=== PATIENT | female | born 1975 | race Caucasian/White ===

== ENCOUNTER 2016-07-21 17:10 | Emergency (ER) | payer OTHER ==
[~2016-07-21] VITALS: Ht 170.2 cm; Wt 99.0 kg
[~2016-07-21 17:10] MED LIST: BETH25 PO; BUSP5 PO; CARB200 PO; CITA-48 PO; CYCL-36 PO; CYPR4TAB PO; FIBECHW PO; FISH1000 PO; IBUP-1116 PO; IBUP-238 PO; LAMO100 PO; MELA1TAB3 PO; OMEP20TA PO; ONDA4 PO; PRAV80TA PO; PROB1TAB PO; RANI75TA8 PO; SUMA6P SQ; TUMS500C PO; UNIS50CA PO; VITA250L PO; ZOVI400T15 PO; [UNRECOGNIZED DRUG - CODE] PO
[2016-07-21 17:20] VITALS: BP 97/70; PULSE 59; RESP 18; TEMP 98.6; O2SAT 97
[2016-07-21] MEDS ORDERED: UNIS25TA2 PO (18:18)
[2016-07-21] MEDS ORDERED: ZOVI400T PO (18:18)
[2016-07-21] MEDS ORDERED: GLUC4CHW CHEW (18:18)
[2016-07-21] MEDS ORDERED: IBUP400T20 PO (18:18)
[2016-07-21] MEDS ORDERED: BETH25 PO (18:18)
[2016-07-21] MEDS ORDERED: SUMA6P SQ (18:18)
[2016-07-21] MEDS ORDERED: CYCL5TAB PO (18:18)
[2016-07-21] MEDS ORDERED: CITA40TA4 PO (18:18)
[2016-07-21] MEDS ORDERED: FIBE625T10 PO (18:18)
[2016-07-21] MEDS ORDERED: ZOFR4TAB PO (18:18)
[2016-07-21] MEDS ORDERED: SACC1CAP3 PO (18:18)
[2016-07-21] MEDS ORDERED: MELA10TA PO (18:18)
[2016-07-21] MEDS ORDERED: VITA10004 PO (18:18)
[2016-07-21] MEDS ORDERED: LAMI50TA PO (18:18)
[2016-07-21] MEDS ORDERED: OMEP20TA PO (18:18)
[2016-07-21] MEDS ORDERED: PRAV80TA PO (18:18)
[2016-07-21] MEDS ORDERED: LAMI200T PO (18:18)
[2016-07-21] MEDS ORDERED: BUSP5TAB PO (18:18)
[2016-07-21] MEDS ORDERED: FISH1000 PO (18:18)
[2016-07-21] MEDS ORDERED: TEGR200T PO (18:18)
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
[2016-07-21] MEDS ORDERED: IBUP800T23 PO (18:41)
[2016-07-21] MEDS ORDERED: ROBA500T PO (18:41)
[2016-07-21] MEDS ORDERED: KETOROLAC TROMETHAMINE 60 MG/2 ML (IM) VIAL IM ONE (18:45)
[2016-07-21] MEDS ORDERED: ACETAMINOPHEN/HYDROcodone 325 MG/5 MG TAB PO ONE (18:45)
[2016-07-21] MEDS ORDERED: ORPHENADRINE INJ 60 MG/2 ML AMP IM ONE (18:45)
== END 2016-07-21 19:40 | disposition home or self-care (01) ==
LOC: PHED 17:10 → PHEFT 19:40
DX: M54.41 Lumbago with sciatica, right side (principal); M54.42 Lumbago with sciatica, left side
CPT/HCPCS: 96372; 99283; J1885; J2360

== ENCOUNTER 2016-08-21 10:20 | Emergency (ER) | payer OTHER ==
[~2016-08-21] VITALS: Ht 170.2 cm; Wt 96.0 kg
[~2016-08-21 10:20] MED LIST changes: -BUSP5 PO; +BUSP5TAB PO; -CARB200 PO; -CITA-48 PO; +CITA40TA4 PO; -CYCL-36 PO; +CYCL5TAB PO; -CYPR4TAB PO; +FIBE625T10 PO; -FIBECHW PO; +GLUC4CHW CHEW; -IBUP-1116 PO; -IBUP-238 PO; +IBUP400T20 PO; +IBUP800T23 PO; +LAMI200T PO; +LAMI50TA PO; -LAMO100 PO; +MELA10TA PO; -MELA1TAB3 PO; -ONDA4 PO; -PROB1TAB PO; -RANI75TA8 PO; +ROBA500T PO; +SACC1CAP3 PO; +TEGR200T PO; -TUMS500C PO; +UNIS25TA2 PO; -UNIS50CA PO; +VITA10004 PO; -VITA250L PO; +ZOFR4TAB PO; +ZOVI400T PO; -ZOVI400T15 PO; -[UNRECOGNIZED DRUG - CODE] PO
[2016-08-21 10:24] VITALS: BP 119/81; PULSE 68; RESP 17; TEMP 99.3; O2SAT 97
[2016-08-21 10:45] VITALS: RESP 18; O2SAT 98
[2016-08-21] MEDS ORDERED: methylPREDNISolone SOD SUCC 125 MG/2 ML VIAL IVP ONE (10:45)
[2016-08-21] MEDS ORDERED: SODIUM CHLORIDE 0.9% FLUSH 10 ML FLUSH IV FLUSH PRN (10:45)
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
[2016-08-21] MEDS: RESP: ALBUTEROL 2.5 MG/IPRATROPIUM 0.5 MG NEB (SCH) INH ×2 (10:52→10:53)
[2016-08-21] MEDS ORDERED: predniSONE 50 MG TAB PO ONE (11:30)
[2016-08-21 11:52] LABS: AUTOMATED NEUTROPHIL # 2.2 TH/MM3 (1.8-7.7); BASOPHIL # 0.1 TH/MM3 (0-0.2); BASOPHIL % 2.1 % (0.0-2.0); EOSINOPHIL % 0.4 % (0.0-4.0); HEMATOCRIT 42.1 % (35.0-46.0); HEMO FLAGS DIFF FINAL; LYMPH % 41.2 % (9.0-44.0); MEAN CELL VOLUME 90.5 FL (80.0-100.0); MEAN CORPUSCULAR HEMOGLOBIN 30.7 PG (27.0-34.0); MONO % 11.4 % (0.0-8.0); NEUT % 44.9 % (16.0-70.0); PLATELET COUNT 142 TH/MM3 (150-450); RED BLOOD COUNT 4.66 MIL/MM3 (4.00-5.30); RED CELL DISTRIBUTION WIDTH 12.1 % (11.6-17.2); WHITE BLOOD COUNT 4.9 TH/MM3 (4.0-11.0)
[2016-08-21] MEDS ORDERED: AMOXICILLIN (TRIHYDRATE) 500 MG CAP PO ONE (12:00)
[2016-08-21 12:04] LABS: CHLORIDE 105 MEQ/L (98-107); SODIUM (NA) 142 MEQ/L (136-145)
[2016-08-21 12:06] LABS: POTASSIUM 3.8 MEQ/L (3.5-5.1)
--- NOTE | 2016-08-21 12:06 | RADHPO ---
EXAM DATE/TIME: 08/21/2016 11:07 [place] COMPARISON: CHEST SINGLE AP, June 05, 2015, 14:32. INDICATIONS : Shortness of breath for one week. MEDICAL HISTORY : Hypercholesterolemia. Cardiovascular disease. Smoker. SURGICAL HISTORY : None. ENCOUNTER: Initial ACUITY: 1 week PAIN SCORE: 5/10 LOCATION: Bilateral chest FINDINGS: Single AP view of the chest. The lungs are clear. Cardiomediastinal silhouette within normal limits. No evidence of pleural effusion or pneumothorax. CONCLUSION: No acute cardiopulmonary disease identified. Frank Mills MD on August 21, 2016 at 12:04 Board Certified Radiologist. This report was verified electronically.
[2016-08-21 12:08] LABS: ANION GAP 12 MEQ/L (5-15); BICARBONATE 24.6 MEQ/L (21.0-32.0); BLOOD UREA NITROGEN 6 MG/DL (7-18)
[2016-08-21 12:11] LABS: ALT (GPT) 25 U/L (10-53); AST (GOT) 31 U/L (15-37); GLOMERULAR FILTRATION RATE 79 ML/MIN (>89)
[2016-08-21] MEDS ORDERED: OSEL75 PO (12:11)
[2016-08-21] MEDS ORDERED: AMOX500T PO (12:11)
[2016-08-21 12:13] LABS: TOTAL BILIRUBIN ADULT 0.3 MG/DL (0.2-1.0)
[2016-08-21 12:14] LABS: ALKALINE PHOSPHATASE 126 U/L (45-117)
[2016-08-21] MEDS ORDERED: OSELTAMIVIR PHOSPHATE 75 MG CAP PO ONE (12:15)
[2016-08-21 12:16] LABS: BETA HCG QUANT 1 MIU/ML (0-5)
[2016-08-21 12:32] VITALS: BP 138/68
--- NOTE | 2016-08-22 23:11 | EKG ---
Date Performed: 08/21/2016 Time Performed: 10:43:42 PTAGE: 40 years EKG: Sinus rhythm rSr'(V1) - probable normal variant Low QRS voltages in precordial leads Borderline ECG PREVIOUS TRACING : 06/05/2015 14.09 Compared to prior tracing no significant change DOCTOR: Timothy Trevino Interpretating Date/Time 08/22/2016 23:09:34
== END 2016-08-21 12:33 | disposition home or self-care (01) ==
LOC: PHED 10:20
DX: J09.X9 Influenza due to identified novel influenza A virus with other manifestations (principal); B95.0 Streptococcus, group A, as the cause of diseases classified elsewhere; J02.0 Streptococcal pharyngitis; F31.9 Bipolar disorder, unspecified; F41.8 Other specified anxiety disorders; E78.00 Pure hypercholesterolemia, unspecified; F20.9 Schizophrenia, unspecified; F17.210 Nicotine dependence, cigarettes, uncomplicated; Z79.899 Other long term (current) drug therapy
CPT/HCPCS: 71010; 80053; 84702; 85025; 87804; 87880; 93005; 94640; 94664; 99284; J7512

== ENCOUNTER 2016-09-28 10:56 | Emergency (ER) | payer OTHER ==
[~2016-09-28] VITALS: Ht 170.2 cm; Wt 95.5 kg
[~2016-09-28 10:56] MED LIST changes: +AMOX500T PO; -BETH25 PO; -IBUP800T23 PO; +OSEL75 PO; -ROBA500T PO; -ZOFR4TAB PO
[2016-09-28 11:09] VITALS: BP 104/56; PULSE 60; RESP 16; TEMP 97.8; O2SAT 97
[2016-09-28] MEDS ORDERED: BETH25 PO (11:21)
[2016-09-28] MEDS ORDERED: SODIUM CHLOR 0.9% 1000 ML INJ 1,000 ML IV ONE (11:30)
[2016-09-28 11:45] VITALS: O2SAT 100
[2016-09-28 12:11] LABS: AUTOMATED NEUTROPHIL # 3.5 TH/MM3 (1.8-7.7); BASOPHIL # 0.1 TH/MM3 (0-0.2); BASOPHIL % 1.1 % (0.0-2.0); CHLORIDE 107 MEQ/L (98-107); EOSINOPHIL # 0.1 TH/MM3 (0-0.4); EOSINOPHIL % 1.7 % (0.0-4.0); HEMATOCRIT 40.4 % (35.0-46.0); HEMO FLAGS DIFF FINAL; LYMPH % 35.7 % (9.0-44.0); LYMPHOCYTE # 2.5 TH/MM3 (1.0-4.8); MEAN CORPUSCULAR HEMOGLOBIN 31.5 PG (27.0-34.0); MONO % 10.8 % (0.0-8.0); NEUT % 50.7 % (16.0-70.0); PLATELET COUNT 234 TH/MM3 (150-450); POTASSIUM 4.3 MEQ/L (3.5-5.1); RED BLOOD COUNT 4.49 MIL/MM3 (4.00-5.30); RED CELL DISTRIBUTION WIDTH 12.5 % (11.6-17.2); SODIUM (NA) 141 MEQ/L (136-145)
[2016-09-28 12:15] LABS: ANION GAP 8 MEQ/L (5-15); BLOOD UREA NITROGEN 12 MG/DL (7-18)
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
[2016-09-28 12:18] LABS: ALT (GPT) 33 U/L (10-53); AST (GOT) 30 U/L (15-37); GLOMERULAR FILTRATION RATE 86 ML/MIN (>89)
[2016-09-28 12:20] LABS: TOTAL BILIRUBIN ADULT 0.2 MG/DL (0.2-1.0)
[2016-09-28 12:21] LABS: ALKALINE PHOSPHATASE 125 U/L (45-117)
[2016-09-28 13:10] LABS: BLOOD, URINE TRACE (NEG); GLUCOSE,URINE NEG (NEG); KETONE, URINE NEG (NEG); NITRITE,URINE NEG (NEG); PH, URINE 6.5 (5.0-8.5)
[2016-09-28 13:17] LABS: AMPHETAMINE, URINE NEG (NEG)
[2016-09-28 13:18] LABS: METHOD OF COLLECTION CLEAN CATCH; RBC, URINE 0-3 /hpf (0-3); URINE COLOR YELLOW (YELLW/STRAW)
[2016-09-28 13:18] LABS: BARBITURATES, URINE NEG (NEG); COCAINE, URINE NEG (NEG)
[2016-09-28 13:26] VITALS: BP 143/60; PULSE 48; RESP 16; O2SAT 100
--- NOTE | 2016-09-29 14:26 | EKG ---
Date Performed: 09/28/2016 Time Performed: 11:32:30 PTAGE: 40 years EKG: Sinus bradycardia rSr'(V1) - probable normal variant Low QRS voltages in precordial leads B orderline ECG PREVIOUS TRACING : 08/21/2016 10.43 Compared to previous tracing, sinus rate is slower. DOCTOR: Solomon Blanco Interpretating Date/Time 09/29/2016 14:24:59
== END 2016-09-28 13:51 | disposition home or self-care (01) ==
LOC: PHED 10:56
DX: G40.909 Epilepsy, unspecified, not intractable, without status epilepticus (principal)
CPT/HCPCS: 80053; 80156; 80307; 81001; 85025; 93005; 96360; 99284; J7030

== ENCOUNTER 2017-01-03 12:21 | Emergency (ER) | payer OTHER ==
[~2017-01-03] VITALS: Ht 167.6 cm; Wt 92.0 kg
[~2017-01-03 12:21] MED LIST changes: -AMOX500T PO; +BETH25 PO; -OSEL75 PO; -UNIS25TA2 PO
[2017-01-03 13:09] VITALS: BP 133/62; PULSE 61; RESP 20; TEMP 98.3; O2SAT 96
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
[2017-01-03] MEDS ORDERED: MUPI2OIN TOPICAL (15:35)
[2017-01-03] MEDS ORDERED: IBUP800T23 PO (15:35)
== END 2017-01-03 15:42 | disposition home or self-care (01) ==
LOC: PHED 12:21 → PHEFT 15:42
DX: B08.4 Enteroviral vesicular stomatitis with exanthem (principal); L01.00 Impetigo, unspecified; E78.00 Pure hypercholesterolemia, unspecified
CPT/HCPCS: 99283

== ENCOUNTER 2017-05-03 13:59 | Emergency (ER) | payer OTHER ==
[~2017-05-03] VITALS: Ht 170.2 cm; Wt 94.0 kg
[~2017-05-03 13:59] MED LIST changes: +IBUP1TAB5 PO; +IBUP1TAB7 PO; -IBUP400T20 PO; +MUPI2OIN TOPICAL; -OMEP20TA PO; +OMEP20TA93 PO
[2017-05-03 14:19] VITALS: BP 165/79; PULSE 57; RESP 20; TEMP 98.8
[2017-05-03] MEDS ORDERED: LAMI200T PO (15:26)
[2017-05-03] MEDS ORDERED: LAMO25 PO (15:26)
[2017-05-03] MEDS ORDERED: BETH25 PO (15:26)
[2017-05-03] MEDS ORDERED: ATOR80TA45 PO (15:26)
[2017-05-03] MEDS ORDERED: CYCL5TAB PO (15:26)
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
[2017-05-03] MEDS ORDERED: CLIN300C5 PO (16:04)
[2017-05-03] MEDS ORDERED: DICL75TA PO (16:04)
== END 2017-05-03 16:40 | disposition home or self-care (01) ==
LOC: PHEFT 13:59
DX: K02.9 Dental caries, unspecified (principal); K04.7 Periapical abscess without sinus; F17.200 Nicotine dependence, unspecified, uncomplicated; G40.909 Epilepsy, unspecified, not intractable, without status epilepticus; E78.00 Pure hypercholesterolemia, unspecified; K31.84 Gastroparesis; F20.9 Schizophrenia, unspecified; F31.9 Bipolar disorder, unspecified
CPT/HCPCS: 99284

== ENCOUNTER 2017-06-14 15:59 | Observation (INO) | payer OTHER, MEDICAID ==
[~2017-06-14] VITALS: Ht 170.2 cm; Wt 91.6 kg
[~2017-06-14 15:59] MED LIST changes: +ATOR80TA45 PO; +CLIN300C5 PO; +DICL75TA PO; -IBUP1TAB7 PO; -LAMI50TA PO; +LAMO25 PO; -PRAV80TA PO
[2017-06-14 16:12] VITALS: BP 127/78; PULSE 55; RESP 16; TEMP 98.4; O2SAT 100
[2017-06-14] MEDS ORDERED: ASPIRIN 325 MG TAB PO ONE (16:45)
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
[2017-06-14] MEDS ORDERED: LORazepam 1 MG TAB PO ONE (17:00)
--- NOTE | 2017-06-14 17:09 | RADRPT ---
EXAM DATE/TIME: 06/14/2017 16:59 [facility] COMPARISON: CHEST SINGLE AP, August 21, 2016, 11:07. INDICATIONS : Chest pain, irregular heart rate starting today MEDICAL HISTORY : None. SURGICAL HISTORY : None. ENCOUNTER: Initial ACUITY: 1 day PAIN SCORE: 10/10 LOCATION: Bilateral chest FINDINGS: There is slight linear parenchymal opacity in the lateral left lung base. This may be sub-segmental a telectasis. There is no evidence of effusion. Cardiomediastinal contours are satisfactory. CONCLUSION: Mild left base parenchymal opacity. Kamron Everett MD on June 14, 2017 at 17:07 Board Certified Radiologist. This report was verified electronically.
[2017-06-14 17:10] LABS: CHLORIDE 108 MEQ/L (98-107); SODIUM (NA) 139 MEQ/L (136-145)
[2017-06-14 17:12] LABS: CALCIUM 8.8 MG/DL (8.5-10.1)
[2017-06-14 17:13] LABS: BICARBONATE 22.4 MEQ/L (21.0-32.0); BLOOD UREA NITROGEN 9 MG/DL (7-18); GLUCOSE,RANDOM 85 MG/DL (74-106)
[2017-06-14 17:16] LABS: CREATININE 0.71 MG/DL (0.50-1.00); GLOMERULAR FILTRATION RATE 90 ML/MIN (>89)
[2017-06-14 17:21] LABS: TROPONIN I LESS THAN 0.02 NG/ML (0.02-0.05)
[2017-06-14 17:27] LABS: AUTOMATED NEUTROPHIL # 4.1 TH/MM3 (1.8-7.7); BASOPHIL # 0.2 TH/MM3 (0-0.2); BASOPHIL % 2.6 % (0.0-2.0); EOSINOPHIL # 0.1 TH/MM3 (0-0.4); EOSINOPHIL % 1.4 % (0.0-4.0); HEMATOCRIT 40.7 % (35.0-46.0); HEMOGLOBIN 14.4 GM/DL (11.6-15.3); LYMPH % 43.3 % (9.0-44.0); LYMPHOCYTE # 3.8 TH/MM3 (1.0-4.8); MEAN CELL VOLUME 92.2 FL (80.0-100.0); MEAN CORPUSCULAR HEMOGLOBIN 32.5 PG (27.0-34.0); MEAN CORPUSCULAR HGB CONC 35.2 % (32.0-36.0); MEAN PLATELET VOLUME 8.9 FL (7.0-11.0); MONO % 7.5 % (0.0-8.0); MONOCYTE # 0.7 TH/MM3 (0-0.9); NEUT % 45.2 % (16.0-70.0); PLATELET COUNT 219 TH/MM3 (150-450); RED BLOOD COUNT 4.42 MIL/MM3 (4.00-5.30); RED CELL DISTRIBUTION WIDTH 12.8 % (11.6-17.2); WHITE BLOOD COUNT 8.9 TH/MM3 (4.0-11.0)
[2017-06-14] MEDS ORDERED: AZITHROMYCIN 250 MG TAB PO ONE (18:15)
[2017-06-14 18:24] VITALS: BP 133/70; PULSE 57; RESP 16; O2SAT 97
[2017-06-14] MEDS ORDERED: MORPHINE SULFATE 4 MG/ML INJ IV PUSH PRN (18:45)
[2017-06-14] MEDS ORDERED: ONDANSETRON HCL 4 MG/2 ML VIAL IV PUSH PRN (18:45)
[2017-06-14] MEDS ORDERED: SODIUM CHLORIDE 0.9% FLUSH 10 ML FLUSH IV FLUSH PRN (18:45)
[2017-06-14 19:28] VITALS: BP 135/74; PULSE 54; RESP 16; O2SAT 98
[2017-06-14 19:52] LABS: TROPONIN I LESS THAN 0.02 NG/ML (0.02-0.05)
[2017-06-14] MEDS ORDERED: LEVOFLOXACIN 750 MG TAB PO SCH (20:00)
[2017-06-14 20:10] VITALS: BP 132/64; PULSE 46; RESP 20; TEMP 96.8; O2SAT 96
[2017-06-14] MEDS: SODIUM CHLORIDE 0.9% FLUSH 10 ML FLUSH IV FLUSH SCH (20:13)
[2017-06-14] MEDS ORDERED: MELATONIN PO SCH (21:30)
[2017-06-14] MEDS ORDERED: ATORVASTATIN 40 MG TAB PO SCH (21:30)
[2017-06-14] MEDS: lamoTRIgine 100 MG TAB PO SCH (21:52)
[2017-06-14] MEDS: busPIRone HCL 5 MG TAB PO SCH (21:52)
[2017-06-14] MEDS: carBAMazepine 200 MG TAB PO SCH (21:52)
[2017-06-14] MEDS: lamoTRIgine 25 MG TAB PO SCH (21:52)
[2017-06-14] MEDS: BETHANECHOL CHL 25 MG TAB PO SCH (21:52)
[2017-06-14 21:55] VITALS: O2SAT 97
[2017-06-14 22:13] LABS: TROPONIN I LESS THAN 0.02 NG/ML (0.02-0.05)
[2017-06-15] VITALS: BP 124/74; PULSE 52; RESP 20; TEMP 96.6; O2SAT 98
[2017-06-15 04:00] VITALS: BP 93/50; PULSE 50; RESP 20; TEMP 96.8; O2SAT 99
[2017-06-15] MEDS: BETHANECHOL CHL 25 MG TAB PO SCH (05:39)
[2017-06-15 08:00] VITALS: BP 113/69; PULSE 51; RESP 16; TEMP 97.2; O2SAT 99
--- NOTE | 2017-06-15 08:10 | EKG ---
Date Performed: 06/14/2017 Time Performed: 21:37:14 PTAGE: 41 years EKG: SINUS BRADYCARDIA INCOMPLETE RIGHT BUNDLE BRANCH BLOCK BORDERLINE ECG PREVIOUS TRACING : 06/14/2017 16.35 Since the prior tracing, there has been no significant fajardo DOCTOR: Yajaira Mena Interpretating Date/Time 06/15/2017 08:09:42
--- NOTE | 2017-06-15 08:10 | EKG ---
Date Performed: 06/14/2017 Time Performed: 16:35:28 PTAGE: 41 years EKG: SINUS BRADYCARDIA INCOMPLETE RIGHT BUNDLE BRANCH BLOCK BORDERLINE ECG PREVIOUS TRACING : 09/28/2016 11.32 Since the prior tracing, there has been no significant fajardo DOCTOR: Yajaira Mena Interpretating Date/Time 06/15/2017 08:09:34
[2017-06-15 08:20] VITALS: O2SAT 99
[2017-06-15] MEDS: lamoTRIgine 25 MG TAB PO SCH (09:00)
[2017-06-15] MEDS ORDERED: CITALOPRAM HYDROBROMIDE 40 MG TAB PO SCH (09:00)
--- NOTE | 2017-06-15 09:19 | HHI.HP ---
[facility] Primary Care Physician Emigdio Almendarez Do, MD Admission Diagnosis Chest pain Diagnoses: (1) Chest pain Chief Complaint: Chest pain Travel History International Travel<30 Days: No Contact w/Intl Traveler <30 Da: No Traveled to Known Affected Are: No History of Present Illness This is a pleasant 41-year-old female with a known medical history of seizures, bipolar disorder, hyperlipidemia, hypertension who presented to the ED with chest pain. Patient states that the chest pain started yesterday morning while at rest, occurred in the midsternal chest area and radiated to the left side, characterized as pressure in nature and lasted for hours. Patient denies ever having this type of pain before. She states that the pain worsens with activity and denies any known alleviating factors. Patient does admit to associated nausea and shortness of breath and diaphoresis, denies any vomiting. Patient rates the pain a 4 out of 10 on pain scale. At the current time patient does state that the chest pain is still present but more mild in nature rates it a pain of 2 out of 10 on pain scale. Patient does admit to current cigarette smoking, one pack per day. Denies any recent illness including fever , chills, abdominal pain, nausea, vomiting, diarrhea or dysuria. 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 PCP is Dr. Almendarez. Review of Systems Constitutional: COMPLAINS OF: Diaphoretic episodes, DENIES: Fever, Chills Eyes: DENIES: Blurred vision, Diplopia Respiratory: COMPLAINS OF: Shortness of breath, DENIES: Cough, Sputum production Cardiovascular: COMPLAINS OF: Chest pain, DENIES: Palpitations Gastrointestinal: COMPLAINS OF: Nausea, DENIES: Abdominal pain, Black stools, Bloody stools, Constipation, Diarrhea, Vomiting Musculoskeletal: DENIES: Joint pain Integumentary: DENIES: Abnormal pigmentation Hematologic/lymphatic: DENIES: Bruising Immunologic/allergic: DENIES: Eczema Neurologic: DENIES: Abnormal gait Psychiatric: COMPLAINS OF: Anxiety Except as stated in HPI: all other systems reviewed are Neg Past Family Social History Past Medical History Bipolar disorder Anxiety Depression Hyperlipidemia Gastroparesis Epilepsy Schizophrenia Past Surgical History History of breast reduction Reported Medications Reported Meds & Active Scripts Active Reported Flexeril (Cyclobenzaprine HCl) 5 Mg Tab 5 Mg PO TID Atorvastatin (Atorvastatin Calcium) 80 Mg Tab 80 Mg PO HS Lamictal (Lamotrigine) 25 Mg Tab 25 Mg PO BID Lamictal (Lamotrigine) 200 Mg Tab 200 Mg PO BID Urecholine (Bethanechol Chloride) 25 Mg Tab 25 Mg PO Q8HR Ibuprofen 400 Mg Tab 400 Mg PO Q6H PRN Glucose (Dextrose) 4 Gm Chew 4 Gm CHEW DIRECTED Melatonin Cr (Melatonin) 10 Mg Tab 1 Tab PO HS Vitamin B12 Tr (Cyanocobalamin) 1,000 Mcg Tab 5,000 Mcg PO DAILY Fiber Tabs (Calcium Polycarbophil) 625 Mg Tab 625 Mg PO DAILY PRN Probiotic (Saccharomyces Boulardii) 250 Mg Cap 250 Mg PO BID Fish Oil (Kinsman-3 Fatty Acids) 1,000 Mg Cap 3,000 Mg PO BID Zovirax (Acyclovir) 400 Mg Tab 400 Mg PO BID PRN Imitrex Inj (Sumatriptan Succinate) 6 Mg/0.5 Ml Inj 6 Mg SQ ONCE PRN May repeat dose in 1 hour if needed. Omeprazole 20 Mg Tab 20 Mg PO DAILY Citalopram (Citalopram Hydrobromide) 40 Mg Tab 40 Mg PO DAILY Buspirone (Buspirone HCl) 5 Mg Tab 5 Mg PO BID Tegretol (Carbamazepine) 200 Mg Tab 600 Mg PO BID Allergies: Coded Allergies: No Known Allergies (Verified Adverse Reaction, Unknown, 06/14/17) Active Ordered Medications Current Medications Medications (Trade) Dose Ordered Sig/Kassandra Route Start Time Stop Time Status Last Admin (NS Flush) 2 ml UNSCH PRN IV FLUSH 06/14/17 18:45 (NS Flush) 2 ml BID IV FLUSH 06/14/17 21:00 (Morphine Inj) 2 mg Q4H PRN IV PUSH 06/14/17 18:45 (Zofran Inj) 4 mg Q6H PRN IV PUSH 06/14/17 18:45 (Levaquin) 750 mg Q24H PO 06/14/17 20:00 06/14/17 20:41 (Lipitor) 80 mg HS PO 06/14/17 21:30 06/14/17 21:52 (Urecholine) 25 mg Q8HR PO 06/14/17 22:00 06/15/17 05:39 (Buspar) 5 mg BID PO 06/14/17 21:30 06/14/17 21:52 (TEGretol) 600 mg BID PO 06/14/17 21:30 06/14/17 21:52 (CeleXA) 40 mg DAILY PO 06/15/17 09:00 (LaMICtal) 25 mg BID PO 06/14/17 21:30 06/14/17 21:52 (LaMICtal) 200 mg BID PO 06/14/17 21:30 06/14/17 21:52 Ceftriaxone Sodium 1000 mg/ Sodium Chloride 100 ml @ 200 mls/hr Q24H IV 06/15/17 12:00 Azithromycin 500 mg/Sodium Chloride 250 ml @ 250 mls/hr Q24H IV 06/15/17 11:00 Family History Maternal medical history significant for hypertension, diabetes and obesity. Patient's uncle had a heart attack at the age of 30. Patient is unaware of father's history. Social History Patient admits to smoking 1 pack per day since her teens. Denies any alcohol use. Admits to marijuana use weekly. Physical Exam Vital Signs Vital Signs Date Time Temp Pulse Resp B/P (MAP) Pulse Ox O2 Delivery O2 Flow Rate FiO2 06/15/17 08:20 99 Nasal Cannula 2.00 06/15/17 08:00 97.2 51 16 113/69 (84) 99 06/15/17 04:00 96.8 50 20 93/50 (64) 99 06/15/17 00:00 96.6 52 20 124/74 (91) 98 06/14/17 21:55 97 Nasal Cannula 2.00 06/14/17 20:10 96.8 46 20 132/64 (86) 96 06/14/17 19:59 56 16 98 06/14/17 19:28 54 16 135/74 (94) 98 Room Air 06/14/17 18:24 57 16 133/70 (91) 97 Room Air 06/14/17 16:30 16 100 Room Air 06/14/17 16:12 98.4 55 16 127/78 (94) 100 Physical Exam GENERAL: Well-developed, well-nourished patient in NAD. On supplemental O2. SKIN: Warm and dry. No rash. HEAD: Normocephalic. Atraumatic. EYES: Pupils equal and round. No scleral icterus. No injection or drainage. ENT: No nasal bleeding or discharge. Mucous membranes pink and moist. NECK: Supple. Trachea midline. CARDIOVASCULAR: Regular rate and rhythm. S1, S2 noted. No murmur appreciated. No reproducible chest pain to palpation. RESPIRATORY: No accessory muscle use. Clear to auscultation. Breath sounds equal bilaterally. GASTROINTESTINAL: Abdomen soft, non-tender, nondistended. Normoactive bowel sounds x4. MUSCULOSKELETAL: No obvious deformities. Extremities without clubbing, cyanosis , or edema. NEUROLOGICAL: Awake and alert. No obvious cranial nerve deficits. Motor grossly within normal limits. 5/5 muscle strength in bilateral upper and lower extremities. Normal speech. PSYCHIATRIC: Appropriate mood and affect; insight and judgment normal. Laboratory Laboratory Tests Test 06/14/17 16:20 06/14/17 16:50 06/14/17 17:15 06/14/17 19:23 White Blood Count 8.9 Red Blood Count 4.42 Hemoglobin 14.4 Hematocrit 40.7 Mean Corpuscular Volume 92.2 Mean Corpuscular Hemoglobin 32.5 Mean Corpuscular Hemoglobin Concent 35.2 Red Cell Distribution Width 12.8 Platelet Count 219 Mean Platelet Volume 8.9 Neutrophils (%) (Auto) 45.2 Lymphocytes (%) (Auto) 43.3 Monocytes (%) (Auto) 7.5 Eosinophils (%) (Auto) 1.4 Basophils (%) (Auto) 2.6 Neutrophils # (Auto) 4.1 Lymphocytes # (Auto) 3.8 Monocytes # (Auto) 0.7 Eosinophils # (Auto) 0.1 Basophils # (Auto) 0.2 CBC Comment DIFF FINAL Differential Comment Blood Urea Nitrogen 9 Creatinine 0.71 Random Glucose 85 Calcium Level 8.8 Magnesium Level 2.0 Sodium Level 139 Potassium Level 3.9 Chloride Level 108 Carbon Dioxide Level 22.4 Anion Gap 9 Estimat Glomerular Filtration Rate 90 Troponin I LESS THAN 0.02 LESS THAN 0.02 Carbamazepine (Tegretol) Level 7.0 Total Creatine Kinase 109 Creatine Kinase MB 0.5 Test 06/14/17 21:44 Total Creatine Kinase 109 Creatine Kinase MB 0.7 Troponin I LESS THAN 0.02 Result Diagram: 06/14/17 1620 06/14/17 1650 Imaging Last Impressions Chest X-Ray 06/14/17 1643 Signed Impressions: Service Date/Time: Wednesday, June 14, 2017 16:59 - CONCLUSION: Mild left base parenchymal opacity. Kamron Everett MD Septic Shock Reassessment Septic shock perfusion: reassessment completed Caprini VTE Risk Assessment Caprini VTE Risk Assessment: No/Low Risk (score <= 1) Caprini Risk Assessment Model Point Value = 1 Point Value = 2 Point Value = 3 Point Value = 5 Age 41-60 Minor surgery BMI > 25 kg/m2 Swollen legs Varicose veins or History of unexplained or recurrent spontaneous Oral contraceptives or hormone replacement Sepsis (< 1 month) Serious lung disease, including pneumonia (< 1 month) Abnormal pulmonary function Acute myocardial infarction Congestive heart failure (< 1 month) History of inflammatory bowel disease Medical patient at bed rest Age 61-74 Arthroscopic surgery Major open surgery (> 45 min) Laparoscopic surgery (> 45 min) Malignancy Confined to bed (> 72 hours) Immobilizing plaster cast Central venous access Age >= 75 History of VTE Family history of VTE Factor V Leiden Prothrombin [id number] Lupus anticoagulant Anticardiolipin antibodies Elevated serum homocysteine Heparin-induced thrombocytopenia Other congenital or acquired thrombophilia Stroke (< 1 month) Elective arthroplasty Hip, pelvis, or leg fracture Acute spinal cord injury (< 1 month) Prophylaxis Regimen Total Risk Factor Score Risk Level Prophylaxis Regimen 0-1 Low Early ambulation 2 Moderate Order ONE of the following: *Sequential Compression Device (SCD) *Heparin 5000 units SQ BID 3-4 Higher Order ONE of the following medications: *Heparin 5000 units SQ TID *Enoxaparin/Lovenox 40 mg SQ daily (WT < 150 kg, CrCl > 30 mL/min) *Enoxaparin/Lovenox 30 mg SQ daily (WT < 150 kg, CrCl > 10-29 mL/min) *Enoxaparin/Lovenox 30 mg SQ BID (WT < 150 kg, CrCl > 30 mL/min) AND/OR *Sequential Compression Device (SCD) 5 or more Highest Order ONE of the following medications: *Heparin 5000 units SQ TID (Preferred with Epidurals) *Enoxaparin/Lovenox 40 mg SQ daily (WT < 150 kg, CrCl > 30 mL/min) *Enoxaparin/Lovenox 30 mg SQ daily (WT < 150 kg, CrCl > 10-29 mL/min) *Enoxaparin/Lovenox 30 mg SQ BID (WT < 150 kg, CrCl > 30 mL/min) AND *Sequential Compression Device (SCD) Assessment and Plan Assessment and Plan This is a pleasant 41-year-old female with a known medical history of seizures, bipolar disorder, hyperlipidemia, hypertension who presented to the ED with chest pain. Chest pain Patient has been admitted for observation and the chest pain center, serial EKGs and serial troponins have been ordered for ruling out ACS purposes. Serial troponins flat, EKG reviewed showing sinus bradycardia with right bundle branch block, no arrhythmias or ST changes noted. Chest pain has now resolved, patient will undergo a Lexiscan to further rule out any ischemia. We will continue to follow. Continue cardiac telemetry, monitor for any arrhythmias. Control pain, morphine IV available per pain scale. Suspect community-acquired pneumonia Chest x-ray reviewed showing mild left base parenchymal opacity. Patient requiring supplemental O2. Attempt to wean to keep O2 saturations greater than 92%. Continue Levaquin. Most likely discharge with p.o. antibiotics. Supportive care. Hyperlipidemia, chronic: Continue home atorvastatin. Depression: Continue home medications. Stable at this time. DVT prophylaxis: SCDs. Ambulation. Patient underwent a Lexiscan, report reviewed showing EF of 59%. Low risk category. No evidence of stress-induced ischemia. Intact wall motion. No redistribution. Patient updated about results. Most likely discharge home if oxygen saturations stable on room air. Problem Qualifiers (1) Chest pain: Qualified Codes: R07.9 - Chest pain, unspecified Margie Rodríguez Jun 15, 2017 09:19
[2017-06-15] MEDS ORDERED: REGADENOSON INJ 0.4 MG/5 ML SYR IV ONE (10:59)
[2017-06-15] MEDS ORDERED: AZITHROMYCIN INJ 500 MG in SODIUM CHLOR 0.9% 250 ML INJ 250 ML IV SCH (11:00)
[2017-06-15] MEDS: carBAMazepine 200 MG TAB PO SCH (11:55)
[2017-06-15] MEDS: busPIRone HCL 5 MG TAB PO SCH (11:55)
[2017-06-15] MEDS: SODIUM CHLORIDE 0.9% FLUSH 10 ML FLUSH IV FLUSH SCH (11:55)
[2017-06-15] MEDS: lamoTRIgine 100 MG TAB PO SCH (11:56)
--- NOTE | 2017-06-15 11:57 | RADRPT ---
EXAM DATE/TIME: 06/15/2017 10:06 [facility] COMPARISON: No previous studies available for comparison. INDICATIONS : Left chest pain. Angina. DOSE: 25.8 mCi Tc99m Myoview at stress. 8.6 mCi Tc99m Myoview at rest. 0.4 mg Lexiscan STRESS SYMPTOMS: Shortness of breath, nausea, vomit. EJECTION FRACTION: 59% MEDICAL HISTORY : Gastroparesis. SURGICAL HISTORY : Tubal ligation. section. ENCOUNTER: Initial ACUITY: 1 day PAIN SCALE: 4/10 LOCATION: Left chest TECHNIQUE: The patient underwent pharmacologic stress with infusion of prescribed dose. Continuous ECG tracing was monitored during stress. Gated SPECT imaging was performed after stress and conventional SPECT i maging was performed at rest. The examination was performed on a SPECT/CT scanner, both attenuation and non-corrected datasets were reviewed. FINDINGS: DISTRIBUTION: The maximum perfused segment at stress is in the inferior wall. PERFUSION STUDY: The pattern of perfusion at stress is within normal limits with regional variations perfusion within 25%. Summed stress score is 2. No evidence of redistribution.. GATED STUDY: There is intact wall motion and thickening without hypokinetic or dyskinetic segments. CONCLUSION: 1. No evidence of stress-induced ischemia. 2. Intact wall motion with 59% ejection fraction. RISK CATEGORY: Low (<1% Annual Mortality Rate) Abraham Isaac MD on June 15, 2017 at 11:54 Board Certified Radiologist. This report was verified electronically.
[2017-06-15 12:00] VITALS: BP 122/78; PULSE 50; RESP 15; TEMP 96.8; O2SAT 98
[2017-06-15] MEDS ORDERED: cefTRIAXone INJ 1,000 MG in SODIUM CHLORIDE 0.9% INJ 100 ML IV SCH (12:00)
--- NOTE | 2017-06-15 12:07 | HHI.DCPOC ---
Discharge Care Plan Diagnosis: (1) Chest pain (2) Pneumonia Goals to Promote Your Health * To prevent worsening of your condition and complications * To maintain your health at the optimal level Directions to Meet Your Goals Take your medications as prescribed Follow your dietary instruction Follow activity as directed Keep your appointments as scheduled Take your immunizations and boosters as scheduled If your symptoms worsen call your PCP, if no PCP go to Urgent Care Center or Emergency Room Smoking is Dangerous to Your Health. Avoid second hand smoke Call the 24-hour hour crisis hotline for domestic abuse at Margie Rodríguez Jun 15, 2017 12:07
[2017-06-15] MEDS ORDERED: LEVA750T9 PO (12:08)
--- NOTE | 2017-06-16 08:09 | TR ---
Date Performed: 06/15/2017 Time Performed: 10:41:27 DOCTOR: Luigi Charlton DRUG LIST: CLINICAL HISTORY: CHEST PAIN WITH RBBB REASON FOR TEST: REASON FOR ENDING: OBSERVATION: CONCLUSION: Lexiscan stress test was performed under standard four minute protocol. Radionuclide was injected one minute prior to ending the test. Electrocardiographic abormalities were present to suggest ischemia. Nuclear imaging and interpretation are pending. COMMENTS:
== END 2017-06-15 14:57 | disposition home or self-care (01) ==
LOC: PHED 15:59 → PHEDA 18:39 → PH3A 20:02
PROVIDERS: ADMIT Hospitalist; ATTEND Hospitalist
DX: R07.9 Chest pain, unspecified (principal); J18.9 Pneumonia, unspecified organism; I10 Essential (primary) hypertension; E78.00 Pure hypercholesterolemia, unspecified; R00.1 Bradycardia, unspecified; I45.10 Unspecified right bundle-branch block; K31.84 Gastroparesis; G40.909 Epilepsy, unspecified, not intractable, without status epilepticus; F31.9 Bipolar disorder, unspecified; F41.9 Anxiety disorder, unspecified; F20.9 Schizophrenia, unspecified; F17.210 Nicotine dependence, cigarettes, uncomplicated; F12.90 Cannabis use, unspecified, uncomplicated; Z79.899 Other long term (current) drug therapy; Z82.49 Family history of ischemic heart disease and other diseases of the circulatory system
CPT/HCPCS: 71045; 78452; 80048; 80156; 82550; 82552; 83735; 84484; 85025; 93005; 93017; 99285; A9502; G0378; J2785

== ENCOUNTER 2017-08-02 19:33 | Emergency (ER) | payer OTHER, MEDICAID ==
[~2017-08-02] VITALS: Ht 170.2 cm; Wt 88.6 kg
[~2017-08-02 19:33] MED LIST changes: -CLIN300C5 PO; -DICL75TA PO; +LEVA750T9 PO; -MUPI2OIN TOPICAL
[2017-08-02 19:37] VITALS: BP 142/72; PULSE 63; RESP 18; TEMP 98; O2SAT 97
[2017-08-02] MEDS ORDERED: SODIUM CHLOR 0.9% 1000 ML INJ 1,000 ML IV SCH (20:01)
[2017-08-02] MEDS ORDERED: ZOFR4TAB PO ×2 (20:02→22:06)
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
[2017-08-02] MEDS ORDERED: SODIUM CHLORIDE 0.9% FLUSH 10 ML FLUSH IV FLUSH PRN (20:15)
[2017-08-02] MEDS ORDERED: SODIUM CHLOR 0.9% 1000 ML INJ 1,000 ML IV ONE (20:15)
[2017-08-02] MEDS ORDERED: ONDANSETRON HCL 4 MG/2 ML VIAL IVP ONE (20:15)
[2017-08-02 20:23] VITALS: O2SAT 97
[2017-08-02 20:27] LABS: BLOOD, URINE MOD (NEG); GLUCOSE,URINE NEG (NEG); KETONE, URINE TRACE mg/dL (NEG); NITRITE,URINE NEG (NEG); PH, URINE 5.5 (5.0-8.5); URINE COLOR YELLOW (YELLW/STRAW); URINE LEUKOCYTE ESTERASE NEG (NEG)
[2017-08-02 20:28] LABS: AUTOMATED NEUTROPHIL # 6.2 TH/MM3 (1.8-7.7); BASOPHIL # 0.1 TH/MM3 (0-0.2); BASOPHIL % 0.9 % (0.0-2.0); EOSINOPHIL # 0.1 TH/MM3 (0-0.4); EOSINOPHIL % 1.1 % (0.0-4.0); HEMATOCRIT 47.1 % (35.0-46.0); HEMOGLOBIN 15.9 GM/DL (11.6-15.3); LYMPH % 30.9 % (9.0-44.0); LYMPHOCYTE # 3.2 TH/MM3 (1.0-4.8); MEAN CELL VOLUME 90.2 FL (80.0-100.0); MEAN CORPUSCULAR HEMOGLOBIN 30.5 PG (27.0-34.0); MEAN CORPUSCULAR HGB CONC 33.8 % (32.0-36.0); MEAN PLATELET VOLUME 8.7 FL (7.0-11.0); MONO % 7.3 % (0.0-8.0); MONOCYTE # 0.8 TH/MM3 (0-0.9); NEUT % 59.8 % (16.0-70.0); PLATELET COUNT 307 TH/MM3 (150-450); RED BLOOD COUNT 5.23 MIL/MM3 (4.00-5.30); RED CELL DISTRIBUTION WIDTH 12.5 % (11.6-17.2); WHITE BLOOD COUNT 10.4 TH/MM3 (4.0-11.0)
[2017-08-02 20:35] LABS: BILIRUBIN, URINE NEG (NEG)
[2017-08-02 20:36] LABS: CHLORIDE 104 MEQ/L (98-107); MUCUS URINE MOD /lpf (OCC); RBC, URINE 0-3 /hpf (0-3); SODIUM (NA) 138 MEQ/L (136-145); SQUAMOUS EPITHELIAL CELL URINE 0-5 /hpf (0-5); WBC, URINE 0-2 /hpf (0-5)
[2017-08-02 20:40] LABS: ALBUMIN 4.6 GM/DL (3.4-5.0); CALCIUM 9.5 MG/DL (8.5-10.1); GLUCOSE,RANDOM 98 MG/DL (74-106)
[2017-08-02 20:41] LABS: BLOOD UREA NITROGEN 15 MG/DL (7-18)
[2017-08-02 20:42] LABS: INTERNATIONAL NORMALIZED RATIO 1.1 RATIO; PROTHROMBIN TIME - PATIENT 10.7 SEC (9.8-11.6)
[2017-08-02 20:43] LABS: ALT (GPT) 44 U/L (10-53); AST (GOT) 31 U/L (15-37); CREATININE 0.87 MG/DL (0.50-1.00); GLOMERULAR FILTRATION RATE 71 ML/MIN (>89)
[2017-08-02 20:45] LABS: TOTAL BILIRUBIN ADULT 0.3 MG/DL (0.2-1.0); TOTAL PROTEIN 8.7 GM/DL (6.4-8.2)
[2017-08-02 20:46] LABS: ALKALINE PHOSPHATASE 161 U/L (45-117)
[2017-08-02] MEDS ORDERED: IOHEXOL 350 MG/ML 10 ML VIAL (for RAD DIAG) IVCONTRAST ONE (21:44)
--- NOTE | 2017-08-02 22:01 | RADRPT ---
EXAM DATE/TIME: 08/02/2017 21:32 [facility] COMPARISON: No previous studies available for comparison. INDICATIONS : Diffuse abdomen pain with nausea and vomiting for three days. IV CONTRAST: 90 cc Omnipaque 350 (iohexol) IV ORAL CONTRAST: No oral contrast ingested. RADIATION DOSE: 15.79 CTDIvol (mGy) MEDICAL HISTORY : Gastroparesis. Seizures. SURGICAL HISTORY : Tubal ligation. section. ENCOUNTER: Initial ACUITY: 3 days PAIN SCALE: 8/10 LOCATION: Bilateral abdomen TECHNIQUE: Volumetric scanning of the abdomen and pelvis was performed. Using automated exposure control and ad justment of the mA and/or kV according to patient size, radiation dose was kept as low as reasonably achievable to obtain optimal diagnostic quality images. DICOM format image data is available electro nically for review and comparison. FINDINGS: LOWER LUNGS: The visualized lower lungs are clear. LIVER: Homogeneous density without lesion. There is no dilation of the biliary tree. No calcified gallston es. SPLEEN: Normal size without lesion. PANCREAS: Within normal limits. KIDNEYS: Normal in size and shape. There is no mass, stone or hydronephrosis. ADRENAL GLANDS: Within normal limits. VASCULAR: There is no aortic aneurysm. BOWEL/MESENTERY: The stomach, small bowel, and colon demonstrate no acute abnormality. There is no free intraperitone al air or fluid. ABDOMINAL WALL: Within normal limits. RETROPERITONEUM: There is no lymphadenopathy. BLADDER: No wall thickening or mass. REPRODUCTIVE: Within normal limits. INGUINAL: There is no lymphadenopathy or hernia. MUSCULOSKELETAL: Within normal limits for patient age. CONCLUSION: 1. No acute findings. Terry Fuentes MD on August 02, 2017 at 21:55 Board Certified Radiologist. This report was verified electronically.
[2017-08-02 22:37] VITALS: BP 119/52; PULSE 58; RESP 16; O2SAT 98
== END 2017-08-02 22:39 | disposition home or self-care (01) ==
LOC: PHED 19:33
DX: K52.9 Noninfective gastroenteritis and colitis, unspecified (principal); G40.909 Epilepsy, unspecified, not intractable, without status epilepticus; F31.9 Bipolar disorder, unspecified; F41.9 Anxiety disorder, unspecified; E78.00 Pure hypercholesterolemia, unspecified; K31.84 Gastroparesis; F20.9 Schizophrenia, unspecified; F17.200 Nicotine dependence, unspecified, uncomplicated; Z79.899 Other long term (current) drug therapy
CPT/HCPCS: 74177; 80053; 81001; 83690; 84703; 85025; 85610; 85730; 87081; 87880; 96361; 96374; 99285; J2405; J7030; Q9967